=== PATIENT | male | born 2000 | race Caucasian/White ===

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

== ENCOUNTER → 2022-01-03 15:51 | Outpatient (CLI) | payer BC, SELFPAY ==
[2022-01-03 17:03] LABS: Basophils # 0.1 K/mm3 (0-0.2); Basophils % 1.6 % (0.1-2.0); Eosinophils # 0.3 K/mm3 (0.0-0.4); Hematocrit 47.3 % (42.0-52.0); Hemoglobin 15.1 g/dL (14.1-18.0); Lymphocytes # 3.4 K/mm3 (0.7-4.5); Lymphocytes % 42.5 % (10-50); Mean Corpuscular Hemoglobin 30.4 pg (27.0-31.2); Mean Corpuscular Volume 95.1 fl (80-94); Monocytes # 0.7 K/mm3 (0.1-1.0); Monocytes % 8.1 % (1.7-9.3); Neutrophils # 3.5 K/mm3 (1.8-7.8); Neutrophils % 43.7 % (37.0-80.0); Platelet Count 335 K/mm3 (142-424); Red Blood Count 4.98 M/mm3 (4.60-6.20); Red Cell Distribution Width 12.9 % (11.5-17.5)
[2022-01-03 17:32] LABS: Alanine Aminotransferase 22 U/L (12-78); Albumin Level 5.1 g/dl (3.5-5.0); Albumin/Globulin Ratio 1.9 (1.1-1.8); Alkaline Phosphatase 83 U/L (38-126); Anion Gap 21.1 mEq/L (5-15); Aspartate Amino Transferase 25 U/L (17-59); Bilirubin,Total 0.5 mg/dl (0.2-1.3); Blood Urea Nitrogen 16 mg/dl (9-20); Calcium 10.4 mg/dl (8.4-10.2); Carbon Dioxide 28 mmol/L (22.0-30.0); Chloride 99 mmol/L (98-107); Chol/HDL Ratio 3.7 (1-3.5); Cholesterol 137 mg/dl (140-200); Estimated Glomerular Filt Rate 95 ml/min (>60); GFR (African American) 115 ML/MIN (>60); Globulin 2.7 g/dL (1.3-3.2); Glucose 91 mg/dl (74-100); HDL Cholesterol 37 mg/dl (40-60); Potassium 4.1 mmoL/L (3.5-5.1); Sodium 144 mmol/L (136-145); Total Protein,Serum 7.8 g/dl (6.3-8.2); Triglycerides 73 mg/dl (30-150); VLDL Cholesterol 15 mg/dL (0-40)
[2022-01-03 17:43] LABS: Direct LDL Cholesterol 81.77 mg/dL (100-129)
== END ==
PROVIDERS: PCP Internal Medicine; Visit Provider Dermatology
DX: L70.0 Acne vulgaris (principal); Z79.899 Other long term (current) drug therapy
CPT/HCPCS: 36415; 80053; 80061; 85025

== ENCOUNTER → 2022-01-31 14:15 | Outpatient (POV) | payer BC, SELFPAY | PROVIDERS: Visit Provider Dermatology | DX: Z00.00 Encounter for general adult medical examination without abnormal findings (principal) ==

== ENCOUNTER → 2022-03-08 14:32 | Outpatient (CLI) | payer BC, SELFPAY ==
[2022-03-08 15:38] LABS: Basophils # 0.1 K/mm3 (0-0.2); Basophils % 1.2 % (0.1-2.0); Eosinophils # 0.3 K/mm3 (0.0-0.4); Eosinophils % 2.9 % (0.1-12.0); Hematocrit 44.9 % (42.0-52.0); Hemoglobin 14.9 g/dL (14.1-18.0); Mean Corpuscular HGB Conc 33.1 g/dL (31.8-35.4); Mean Corpuscular Hemoglobin 31.5 pg (27.0-31.2); Mean Corpuscular Volume 95.1 fl (80-94); Mean Platelet Volume 9.1 fl (7.4-10.4); Monocytes # 0.6 K/mm3 (0.1-1.0); Monocytes % 6.9 % (1.7-9.3); Neutrophils # 5.1 K/mm3 (1.8-7.8); Neutrophils % 56.1 % (37.0-80.0); Platelet Count 322 K/mm3 (142-424); Red Blood Count 4.71 M/mm3 (4.60-6.20); Red Cell Distribution Width 12.8 % (11.5-17.5); White Blood Count 9.1 K/mm3 (4.5-13.0)
[2022-03-08 16:23] LABS: Alanine Aminotransferase 19 U/L (12-78); Aspartate Amino Transferase 26 U/L (17-59); Bilirubin,Unconjugated 0.2 mg/dL (0.0-1.1)
[2022-03-08 16:24] LABS: Albumin Level 4.9 g/dl (3.5-5.0); Alkaline Phosphatase 58 U/L (38-126); Bilirubin,Direct 0.4 mg/dl (0.0-0.4); Bilirubin,Indirect 0.2 mg/dL (0.0-0.9); Bilirubin,Total 0.6 mg/dl (0.2-1.3); Cholesterol 160 mg/dl (140-200); HDL Cholesterol 40 mg/dl (40-60); Total Protein,Serum 7.7 g/dl (6.3-8.2); Triglycerides 145 mg/dl (30-150); VLDL Cholesterol 29 mg/dL (0-40)
[2022-03-08 16:39] LABS: Direct LDL Cholesterol 82.38 mg/dL (100-129)
== END ==
PROVIDERS: PCP Internal Medicine; Visit Provider Dermatology
DX: L70.0 Acne vulgaris (principal); Z79.899 Other long term (current) drug therapy
CPT/HCPCS: 36415; 80061; 80076; 85025

== ENCOUNTER → 2022-06-13 14:45 | Outpatient (POV) | payer BC, SELFPAY | PROVIDERS: Visit Provider Dermatology | DX: Z00.00 Encounter for general adult medical examination without abnormal findings (principal) ==

== ENCOUNTER 2024-06-04 09:01 | Outpatient (CLI) | payer BC, SELFPAY ==
[2024-06-04 09:31] LABS: Basophils # 0.1 K/mm3 (0-0.2); Basophils % 0.7 % (0.1-2.0); Eosinophils # 0.2 K/mm3 (0.0-0.4); Eosinophils % 3.2 % (0.1-12.0); Hematocrit 46.3 % (42.0-52.0); Hemoglobin 16.4 g/dL (14.1-18.0); Lymphocytes # 1.9 K/mm3 (0.7-4.5); Lymphocytes % 27.6 % (10-50); Mean Corpuscular HGB Conc 35.4 g/dL (31.8-35.4); Mean Corpuscular Hemoglobin 31.6 pg (27.0-31.2); Mean Corpuscular Volume 89.2 fl (80-94); Mean Platelet Volume 10.5 fl (7.4-10.4); Monocytes # 0.8 K/mm3 (0.1-1.0); Monocytes % 11.9 % (1.7-9.3); Neutrophils # 3.8 K/mm3 (1.8-7.8); Neutrophils % 55.7 % (37.0-80.0); Platelet Count 286 K/mm3 (142-424); Red Blood Count 5.19 M/mm3 (4.60-6.20); Red Cell Distribution Width 11.7 % (11.5-17.5); White Blood Count 6.8 K/mm3 (4.8-10.8)
[2024-06-04 09:50] LABS: Albumin Level 5.2 g/dl (3.5-5.0); Chloride 103 mmol/L (98-107); Potassium 4.8 mmoL/L (3.5-5.1); Sodium 142 mmol/L (136-145)
[2024-06-04 09:53] LABS: Alanine Aminotransferase 24 U/L (12-78); Alkaline Phosphatase 62 U/L (38-126); Anion Gap 15.8 mEq/L (5-15); Aspartate Amino Transferase 22 U/L (17-59); Bilirubin,Direct 0.1 mg/dl (0.0-0.4); Bilirubin,Indirect 0.6 mg/dL (0.0-0.9); Bilirubin,Total 0.7 mg/dl (0.2-1.3); Bilirubin,Unconjugated 0.6 mg/dL (0.0-1.1); Blood Urea Nitrogen 14 mg/dl (9-20); Calcium 10.4 mg/dl (8.4-10.2); Carbon Dioxide 28 mmol/L (22.0-30.0); Cholesterol 173 mg/dl (140-200); Estimated Glomerular Filt Rate 106 ml/min (>60); GFR (African American) 128 ML/MIN (>60); Glucose 97 mg/dl (74-100); Magnesium 1.7 mg/dl (1.6-2.3); Total Protein,Serum 8.4 g/dl (6.3-8.2); Triglycerides 86 mg/dl (30-150); VLDL Cholesterol 17 mg/dL (0-40)
[2024-06-04 09:54] LABS: Chol/HDL Ratio 3.6 (1-3.5); HDL Cholesterol 48 mg/dl (40-60)
[2024-06-04 10:09] LABS: Free T4 (Free Thyroxine) 1.07 ng/dl (0.78-2.19)
[2024-06-04 11:28] LABS: Thyroid Stimulating Hormone 2.94 uIU/mL (0.465-4.68)
== END 2024-06-04 23:59 | disposition home or self-care (01) ==
LOC: RT 09:03
PROVIDERS: PCP Internal Medicine; Visit Provider Physician Assistant
DX: R00.2 Palpitations (principal); R06.02 Shortness of breath; R42 Dizziness and giddiness; R07.89 Other chest pain
CPT/HCPCS: 36415; 80048; 80061; 80076; 83735; 84439; 84443; 85025; 93270

== ENCOUNTER 2024-06-19 08:51 | Outpatient (CLI) | payer BC, SELFPAY ==
--- NOTE | 2024-06-19 | CA_ITS ---
APPROVED REPORT Exam: Exercise Treadmill Technologist: Radhika Steinberg Ht: 6 ft 1 in Wt: 177 lbs BSA: 2.04 m2 HR: 72 bpm BP: 139/82 mmHg Rhythm: NSR Medical History Allergies: No known drug allergies Stress Test Details Test: Exercise stress testing was performed using a Chilo protocol. HR Resting HR: 72 bpm Max Heart Rate (APMHR): 198 bpm Max HR Achieved: 169 bpm Target HR (85% APMHR): 168 bpm % of APMHR: 85 Recovery HR: 97 bpm HR response to stress: Normal HR response to stress BP Resting BP: 139.0/82.0 mmHg Max BP: 189.0/103.0 mmHg Recovery BP: 150.0/86.0 mmHg BP response to stress: Normal blood pressure response to stress. ECG Resting ECG: NSR Stress EC mm horizontal ST depression Clinical Exercise duration: 13.00 min Exercise capacity: 13.9 METs Stress ECG Conclusion Max HR: 170 % of PM: 86 Max BP: 189/103 Mets: 13.9 Test stopped due to: leg fatigue ST changes: [address] depression CONCLUSION: Average exercise capacity. Equivocal ECG changes at peak stress. Further evaluation for ischemia is suggested. Electronically signed by : Maria G Swan MD 06/19/2024 12:43:27
--- NOTE | 2024-06-19 09:00 | CA_ITS ---
APPROVED REPORT EXAM: Comprehensive 2D, Doppler, and color-flow Echocardiogram Tax Preparer: Lizeth Baptiste RVT Ht: 6 ft 1 in Wt: 177lbs BSA: 2.04 BP: 151/96 mmHg Indications: Chest pain, palpitations, fatigue 2D Dimensions LA Volume 22.80 mL LA Volume Index 11.18 mL/m2 (M/F) 16-34 M-Mode Dimensions RVDd 2.48 cm (0.9-2.6) LA Diam 2.88 cm (1.9-4.0) LVDd 3.39 cm (3.5-5.7) LVDs 2.15 cm (3.5-5.7) IVSd 0.94 cm (0.6-1.1) PWd 0.60 cm (0.6-1.1) EF (Teich) 67.50% FS 36.60% EDV (Teich) 47.10 mL TAPSE 2.15 (<1.7) ESV (Teich) 15.30 mL LV Diastology E Decel Time 177 (160-240 msec) E/A Ratio 2.0 Aortic Valve GIANNI Index 1.38 cm2/m2 AoV Peak Ishaan. 144.0 (50-130 cm/s) AO Peak GR. 8.30 mmHg AO Mean GR. 4.40 (<5 mmHg) AO VTI 27.9 (18-25 cm) GIANNI (VTI) 2.88 (2.5-4.5 cm2) Mitral Valve MV E Max Ishaan. 126.0 (40-130 cm/s) MV A Velocity 63.0 (40-130 cm/s) E/A Ratio 1.99 MV PHT 52.0 ms Pulmonary Valve PV Peak Velocity 97.0 (50-150 cm/s) Tricuspid Valve TR P. Velocity 252.00 cm/s RAP Estimate 10.00 mmHg RVSP 35.40 mmHg Left Ventricle The left ventricle is normal size. The left ventricular systolic function is normal. The left ventricular ejection fraction is within the normal range. There is normal left ventricular wall thickness. There is normal LV segmental wall motion. The left ventricular diastolic function is normal. LVEF is 55%. Right Ventricle The right ventricle is normal size. The right ventricular systolic function is normal. Atria The left atrium size is normal. The right atrium size is normal. There is no Doppler evidence of interatrial shunt. Aortic Valve The aortic valve opens well. There is no aortic valvular stenosis. No aortic regurgitation is present. Mitral Valve The mitral valve is normal in structure. No evidence of mitral valve stenosis. Trace mitral valve regurgitation noted. Tricuspid Valve Tricuspid valve is grossly normal in structure and function. Trace tricuspid regurgitation. RVSP is normal. Pulmonic Valve The pulmonary valve is normal in structure. Trace pulmonic regurgitation. Great Vessels The aortic root is normal in size. IVC is normal in size and collapses >50% with inspiration. Pericardium There is no pericardial effusion. Other Information Study Quality: Adequate Conclusion Normal biventricular systolic function. No significant valvular stenosis or regurgitation. Electronically signed by : Maria G Swan MD 06/19/2024 10:46:54
== END 2024-06-19 23:59 | disposition home or self-care (01) ==
LOC: RT 08:52
PROVIDERS: PCP Internal Medicine; Visit Provider Physician Assistant
DX: R00.2 Palpitations (principal); R06.02 Shortness of breath; R42 Dizziness and giddiness
CPT/HCPCS: 93017; 93018; 93306